=== PATIENT | female | born 1975 | race Two or more races ===

== ENCOUNTER → 2017-03-15 | Outpatient (CLI) | payer OTHER ==
--- NOTE | 2017-03-15 11:02 | Diagnostic Imaging Report ---
Indication: Abdominal pain Technique: Neri-scale and duplex images of the upper abdomen were obtained Comparison: None Findings: Exam is somewhat technically limited due to patient body habitus. Gallbladder is unremarkable, without stones, wall thickening, nor pericholecystic fluid. Common bile duct measures 5 mm in diameter. No intrahepatic biliary ductal dilatation. Liver demonstrates diffusely increased echogenicity, consistent with diffuse hepatocellular disease, most likely fatty change. No focal abnormality. No surface nodularity. Portal vein and hepatic veins are patent.. Pancreas is incompletely visualized due to overlying bowel gas, visualized portions are unremarkable. Spleen is unremarkable. Left kidney measures 11.5 cm in length. Right kidney measures 11.7 cm length. Both kidneys demonstrate normal echogenicity. There is no hydronephrosis. No focal abnormality. . Non-aneurysmal abdominal aorta. Impression: Liver demonstrates diffusely increased echogenicity, consistent with diffuse hepatocellular disease, most likely fatty change. And surface nodularity to suggest cirrhosis. No focal abnormality Negative for gallstones or dilated ducts Note incomplete visualization of the pancreas
== END | disposition home or self-care (01) ==
LOC: ULS 09:32
DX: K76.0 Fatty (change of) liver, not elsewhere classified (principal)
CPT/HCPCS: 76700